=== PATIENT | male | born 1965 | race African-American/Black ===

== ENCOUNTER 2021-04-06 15:07 | Emergency (ER) | payer OTHER ==
[2021-04-06 15:45] LABS: #Eosinphils 0.7 10x3/uL (0.0-0.5); #Monocytes 0.6 10x3/uL (0.0-1.1); #Neutrophils 4.4 10x3/uL (1.5-8.4); %Basophils 0.4 % (0.0-2.0); %Eosinophils 7.2 % (0.0-6.0); %Lymphocytes 39.1 % (18.0-47.0); %Monocytes 6.3 % (0.0-10.0); %Neutrophils 46.9 % (40.0-75.0); Hemoglobin 14.4 g/dL (13.5-17.5); Mean Corpuscular HGB CONC 32.7 g/dL (32.0-36.0); Mean Corpuscular Hemoglobin 25.6 pg (27.0-33.0); Mean Corpuscular Volume 78.2 fl (81.2-95.1); Mean Platelet Volume 11.5 fl (7.4-10.4); Platelet Count 163 10x3/uL (150-450); RBC Distribution Width 13.2 % (11.5-14.5); Red Blood Cell (RBC) Count 5.63 10x6/uL (4.32-5.72); White Blood Cell (WBC) Count 9.5 10x3/uL (3.5-10.5)
[2021-04-06 15:59] LABS: Acetaminophen Less than 6.0 mcg/mL (10.0-30.0); Alcohol 145 mg/dL (Less than 10); CK (CPK) 237 U/L (30-200); Magnesium 2.2 mg/dL (1.6-2.6); Salicylate Less than 8.0 mg/dL (15.0-30.0)
[2021-04-06 16:00] LABS: ALT (SGPT) 11 U/L (8-55); AST (SGOT) 16 U/L (5-34); Albumin 4.2 g/dL (3.5-5.0); Alkaline Phosphatase 59 U/L (40-110); Anion Gap 14 mmol/L (10-20); BUN (Urea Nitrogen) 8 mg/dL (8.4-25.7); Bilirubin, Total 0.5 mg/dL (0.2-1.2); Calc. Creatinine Clearance 0 mL/min (70-130); Carbon Dioxide 22 mmol/L (22-29); Chloride 108 mmol/L (98-107); Globulin 3.1 g/dL (2.4-3.5); Glucose 72 mg/dL (70-105); Potassium 3.7 mmol/L (3.5-5.1); Protein, Total 7.3 g/dL (6.0-8.3); Sodium 140 mmol/L (136-145)
[2021-04-06 16:01] LABS: Bilirubin Neg (Negative); Blood, Urine Negative (Negative); Clarity Clear (Clear); Glucose, Urine (Dipstick) Normal (Negative); Ketone, Urine Negative (Negative); Leukocyte Negative (Negative); Nitrite Negative (Negative); Protein, Urine (Dipstick) Negative (Neg-Trace); Urobilinogen Normal mg/dL (Less than 2)
[2021-04-06 16:06] LABS: Amphetamine Not Detected (NotDetected); Barbiturates Screen Not Detected (NotDetected); Benzodiazepine Screen Not Detected (NotDetected); Cocaine Metabolite Screen Not Detected (NotDetected); Methadone Not Detected (NotDetected); Methamphetamine Not Detected (NotDetected); Opiate Screen Not Detected (NotDetected); Oxycodone Screen Not Detected (NotDetected); Phencyclidine (PCP) Not Detected (NotDetected); THC/Cannabinoid Screen Not Detected (NotDetected); Tricyclic Screen Not Detected (NotDetected)
== END 2021-04-06 17:15 | disposition home or self-care (01) ==
LOC: CSHERS 15:07
DX: F10.129 Alcohol abuse with intoxication, unspecified (principal); Y90.2 Blood alcohol level of 40-59 mg/100 ml; Z86.73 Personal history of transient ischemic attack (TIA), and cerebral infarction without residual deficits; I10 Essential (primary) hypertension; E78.5 Hyperlipidemia, unspecified; Z79.82 Long term (current) use of aspirin; Z79.899 Other long term (current) drug therapy
CPT/HCPCS: 36415; 70450; 71045; 80053; 80306; 80307; 81003; 82550; 83735; 84443; 85025; 93005

== ENCOUNTER 2021-08-25 20:32 | Emergency (ER) | payer OTHER ==
[2021-08-25] MEDS ORDERED: Lidocaine 1% w/Epinephrine 1:100K 20 ML VIAL ONE (21:02)
[2021-08-25 22:30] LABS: #Basophils 0.1 10x3/uL (0.0-0.2); #Eosinphils 0.7 10x3/uL (0.0-0.5); #Monocytes 0.6 10x3/uL (0.0-1.1); %Basophils 0.7 % (0.0-2.0); %Eosinophils 6.6 % (0.0-6.0); %Lymphocytes 26.3 % (18.0-47.0); %Monocytes 6.1 % (0.0-10.0); %Neutrophils 60.1 % (40.0-75.0); Hemoglobin 15.2 g/dL (13.5-17.5); Mean Corpuscular HGB CONC 33.3 g/dL (32.0-36.0); Mean Corpuscular Hemoglobin 25.5 pg (27.0-33.0); Mean Corpuscular Volume 76.6 fl (81.2-95.1); Mean Platelet Volume 11.5 fl (7.4-10.4); Platelet Count 177 10x3/uL (150-450); RBC Distribution Width 12.9 % (11.5-14.5); Red Blood Cell (RBC) Count 5.95 10x6/uL (4.32-5.72); White Blood Cell (WBC) Count 9.9 10x3/uL (3.5-10.5)
[2021-08-25 22:41] LABS: ALT (SGPT) 17 U/L (8-55); AST (SGOT) 19 U/L (5-34); Albumin 4.5 g/dL (3.5-5.0); Alcohol 116 mg/dL (Less than 10); Alkaline Phosphatase 64 U/L (40-110); Anion Gap 15 mmol/L (10-20); BUN (Urea Nitrogen) 9 mg/dL (8.4-25.7); Bilirubin, Total 0.5 mg/dL (0.2-1.2); Calc. Creatinine Clearance 0 mL/min (70-130); Calcium 9.4 mg/dL (7.8-10.44); Carbon Dioxide 24 mmol/L (22-29); Chloride 105 mmol/L (98-107); Globulin 3.1 g/dL (2.4-3.5); Glucose 84 mg/dL (70-105); Potassium 4.2 mmol/L (3.5-5.1); Protein, Total 7.6 g/dL (6.0-8.3); Sodium 140 mmol/L (136-145)
[2021-08-25] MEDS ORDERED: Bacitracin 1 PK ONE (23:24)
== END 2021-08-25 23:29 | disposition home or self-care (01) ==
LOC: CSHERS 20:32
DX: S01.01XA Laceration without foreign body of scalp, initial encounter (principal); F10.10 Alcohol abuse, uncomplicated; I10 Essential (primary) hypertension; F17.210 Nicotine dependence, cigarettes, uncomplicated; W19.XXXA Unspecified fall, initial encounter
CPT/HCPCS: 70450; 72125; 80053; 80307; 84484; 85025; 93005

== ENCOUNTER 2021-09-29 19:06 | Emergency (ER) | payer OTHER | END 2021-09-29 19:20 | disposition left against medical advice (07) | LOC: CSHERS 19:06 | DX: Z53.21 Procedure and treatment not carried out due to patient leaving prior to being seen by health care provider (principal) ==

== ENCOUNTER 2021-11-08 19:20 | Emergency (ER) | payer OTHER ==
[2021-11-08] MEDS ORDERED: Erythromycin Base 0.5% Oint 1 GM TUBE ONE (20:12)
== END 2021-11-08 20:15 | disposition home or self-care (01) ==
LOC: CSHERS 19:20
DX: H10.9 Unspecified conjunctivitis (principal); I10 Essential (primary) hypertension
CPT/HCPCS: 99283

== ENCOUNTER 2022-03-08 11:28 | Observation (INO) | payer OTHER ==
[~2022-03-08 11:28] MED LIST: Iopamidol 370 76% 100 ML VIAL ONE
[2022-03-08 13:01] LABS: #Basophils 0.1 10x3/uL (0.0-0.2); #Eosinphils 0.6 10x3/uL (0.0-0.5); #Monocytes 0.9 10x3/uL (0.0-1.1); #Neutrophils 7.5 10x3/uL (1.5-8.4); %Basophils 0.5 % (0.0-2.0); %Eosinophils 4.5 % (0.0-6.0); %Monocytes 7.1 % (0.0-10.0); %Neutrophils 60.6 % (40.0-75.0); Hemoglobin 14.8 g/dL (13.5-17.5); Mean Corpuscular HGB CONC 32.7 g/dL (32.0-36.0); Mean Corpuscular Hemoglobin 25.1 pg (27.0-33.0); Mean Corpuscular Volume 76.8 fl (81.2-95.1); Mean Platelet Volume 12.2 fl (7.4-10.4); Platelet Count 237 10x3/uL (150-450); RBC Distribution Width 12.8 % (11.5-14.5); White Blood Cell (WBC) Count 12.3 10x3/uL (3.5-10.5)
[2022-03-08 13:08] LABS: INR-International Normal Ratio 0.9; PTT 25.3 sec (22.0-33.0); Prothrombin Time 10.2 sec (9.5-12.1)
[2022-03-08 13:11] LABS: ALT (SGPT) 30 U/L (8-55); AST (SGOT) 27 U/L (5-34); Albumin 4.6 g/dL (3.5-5.0); Alkaline Phosphatase 80 U/L (40-110); Anion Gap 15 mmol/L (10-20); BUN (Urea Nitrogen) 17 mg/dL (8.4-25.7); Bilirubin, Total 0.7 mg/dL (0.2-1.2); Calc. Creatinine Clearance 0 mL/min (70-130); Calcium 10.1 mg/dL (7.8-10.44); Carbon Dioxide 27 mmol/L (22-29); Chloride 100 mmol/L (98-107); Estimated GFR 76; Globulin 3.3 g/dL (2.4-3.5); Glucose 141 mg/dL (70-105); Potassium 3.8 mmol/L (3.5-5.1); Protein, Total 7.9 g/dL (6.0-8.3); Sodium 138 mmol/L (136-145)
[2022-03-08 13:55] LABS: Bilirubin Neg (Negative); Blood, Urine Negative (Negative); Clarity Clear (Clear); Glucose, Urine (Dipstick) Normal (Negative); Ketone, Urine Negative (Negative); Leukocyte 100 (Negative); Nitrite Negative (Negative); Protein, Urine (Dipstick) Negative (Neg-Trace); Urobilinogen Normal mg/dL (Less than 2)
[2022-03-08 14:14] LABS: RBC/HPF None Seen HPF (0-3); WBC/HPF 0-3 HPF (0-3)
[2022-03-08 14:15] LABS: Bacteria/HPF None Seen HPF (None Seen); Squamous Epithelial 0-3 HPF (0-3)
[2022-03-08 17:40] LABS: Troponin I Less than 0.010 ng/mL (< 0.028)
[2022-03-08] MEDS ORDERED: Ondansetron ODT 4 MG TAB PO PRN (18:25)
[2022-03-08] MEDS ORDERED: Senokot S 8.6-50 MG TAB PO PRN (18:25)
[2022-03-08] MEDS ORDERED: Acetaminophen 325 MG TAB PO PRN (18:25)
[2022-03-08] MEDS ORDERED: Ondansetron PF 4 MG/2 ML Vial IVP PRN (18:25)
[2022-03-08] MEDS ORDERED: Nicotine 14 MG PATCH TD PRN (18:27)
[2022-03-08] MEDS ORDERED: Benzonatate 100 MG CAP PO PRN (18:28)
[2022-03-08 19:35] VITALS: BMI 19.3
[2022-03-08 20:16] LABS: Troponin I Less than 0.010 ng/mL (< 0.028)
[2022-03-08] MEDS ORDERED: FLU VACC QS2022-23(6MOS UP)/PF 60 MCG/0.5 ML SYRINGE IM ONE (22:30)
[2022-03-09 02:03] LABS: SARS-CoV-2 NAA Rapid Test Not Detected (NotDetected)
[2022-03-09 04:55] LABS: #Basophils 0.1 10x3/uL (0.0-0.2); #Eosinphils 0.4 10x3/uL (0.0-0.5); #Monocytes 0.7 10x3/uL (0.0-1.1); #Neutrophils 6.4 10x3/uL (1.5-8.4); %Basophils 0.5 % (0.0-2.0); %Monocytes 6.2 % (0.0-10.0); %Neutrophils 59.9 % (40.0-75.0); Hemoglobin 13.5 g/dL (13.5-17.5); Mean Corpuscular HGB CONC 32.8 g/dL (32.0-36.0); Mean Corpuscular Hemoglobin 25.4 pg (27.0-33.0); Mean Corpuscular Volume 77.4 fl (81.2-95.1); Mean Platelet Volume 12.3 fl (7.4-10.4); Platelet Count 159 10x3/uL (150-450); RBC Distribution Width 12.9 % (11.5-14.5); Red Blood Cell (RBC) Count 5.32 10x6/uL (4.32-5.72); White Blood Cell (WBC) Count 10.7 10x3/uL (3.5-10.5)
[2022-03-09 05:10] LABS: Anion Gap 14 mmol/L (10-20); BUN (Urea Nitrogen) 16 mg/dL (8.4-25.7); Calc. Creatinine Clearance 60 mL/min (70-130); Calcium 9.2 mg/dL (7.8-10.44); Carbon Dioxide 28 mmol/L (22-29); Chloride 101 mmol/L (98-107); Estimated GFR 82; Glucose 87 mg/dL (70-105); Potassium 3.7 mmol/L (3.5-5.1); Sodium 139 mmol/L (136-145)
[2022-03-09 12:39] VITALS: TEMP 98.1
[2022-03-09 15:18] VITALS: BP 158/101
[2022-03-10] MEDS ORDERED: Clopidogrel Bisulfate 75 MG TAB PO SCH (09:00)
== END 2022-03-09 17:05 | disposition short-term general hospital (02) ==
LOC: CSHERS 11:28 → CSHTELE 17:32 → INTOOBSV 17:32
PROVIDERS: ADMIT Internal Medicine; ATTEND Internal Medicine
DX: I63.9 Cerebral infarction, unspecified (principal); I65.23 Occlusion and stenosis of bilateral carotid arteries; G93.89 Other specified disorders of brain; G81.90 Hemiplegia, unspecified affecting unspecified side; D72.829 Elevated white blood cell count, unspecified; I10 Essential (primary) hypertension; E78.5 Hyperlipidemia, unspecified; F17.210 Nicotine dependence, cigarettes, uncomplicated; Z79.82 Long term (current) use of aspirin; Z79.899 Other long term (current) drug therapy; Z20.822 Contact with and (suspected) exposure to COVID-19
CPT/HCPCS: 36415; 70450; 70496; 70498; 70551; 71045; 80048; 80053; 81003; 81015; 84484; 85025; 85610; 85730; 87804; 93005; 94760; G0378; Q9967

== ENCOUNTER 2022-07-04 15:57 | Emergency (ER) | payer OTHER ==
[2022-07-04 17:24] LABS: Bilirubin Neg (Negative); Blood, Urine Negative (Negative); Clarity Clear (Clear); Glucose, Urine (Dipstick) Normal (Negative); Ketone, Urine Negative (Negative); Leukocyte 100 (Negative); Nitrite Negative (Negative); Protein, Urine (Dipstick) Negative (Neg-Trace); Urobilinogen Normal mg/dL (Less than 2); pH, Urine 6.5 (5.0-9.0)
[2022-07-04 17:41] LABS: Bacteria/HPF Rare-Few HPF (None Seen); RBC/HPF 0-3 HPF (0-3); Squamous Epithelial 0-3 HPF (0-3)
== END 2022-07-04 19:41 | disposition home or self-care (01) ==
LOC: CSHERS 15:57
DX: M25.571 Pain in right ankle and joints of right foot (principal); I10 Essential (primary) hypertension; F17.210 Nicotine dependence, cigarettes, uncomplicated
CPT/HCPCS: 81003; 81015; 99283

== ENCOUNTER 2023-05-15 05:22 | Inpatient (IN) | payer OTHER ==
[2023-05-15] MEDS ORDERED: hydrALAZINE 20 MG/ML VIAL ONE ×2 (06:14→08:13)
[2023-05-15 06:31] LABS: Hematocrit 46.9 % (38.8-50.0); Hemoglobin 14.9 g/dL (13.5-17.5); Mean Corpuscular HGB CONC 31.8 g/dL (32.0-36.0); Mean Corpuscular Hemoglobin 24.3 pg (27.0-33.0); Mean Corpuscular Volume 76.6 fl (81.2-95.1); Mean Platelet Volume 11.1 fl (7.4-10.4); Platelet Count 147 10x3/uL (150-450); RBC Distribution Width 13.6 % (11.5-14.5); Red Blood Cell (RBC) Count 6.12 10x6/uL (4.32-5.72); White Blood Cell (WBC) Count 9.2 10x3/uL (3.5-10.5)
[2023-05-15 06:32] LABS: MDiff Complete? YES
[2023-05-15] MEDS ORDERED: Ondansetron PF 4 MG/2 ML Vial ONE (06:39)
[2023-05-15 06:40] LABS: Anion Gap 17 mmol/L (10-20); BUN (Urea Nitrogen) 13 mg/dL (8.4-25.7); Calc. Creatinine Clearance 0 mL/min (70-130); Calcium 9.6 mg/dL (7.8-10.44); Carbon Dioxide 23 mmol/L (22-29); Chloride 107 mmol/L (98-107); Estimated GFR 61; Glucose 96 mg/dL (70-105); Potassium 3.7 mmol/L (3.5-5.1); Sodium 143 mmol/L (136-145)
[2023-05-15 06:41] LABS: ALT (SGPT) 13 U/L (8-55); AST (SGOT) 15 U/L (5-34); Albumin 4.6 g/dL (3.5-5.0); Alkaline Phosphatase 79 U/L (40-110); Globulin 3.8 g/dL (2.4-3.5); Protein, Total 8.4 g/dL (6.0-8.3)
[2023-05-15 07:16] LABS: Eosinophils 2 % (0-10); Lymphocytes 20 % (21-51); Monocytes 3 % (0-10); Neutrophil 75 % (42-75)
[2023-05-15 07:25] LABS: Hypochromia SLIGHT = 6-15 cells (100X) (0-5/hpf); Platelet Adequacy Comment Appears Adequate; Target Cells SLIGHT = 2-5 cells (100X) (0-1/hpf)
[2023-05-15 07:30] LABS: Prothrombin Time 11.1 sec (9.5-12.1)
[2023-05-15 07:31] LABS: PTT 26.3 sec (22.0-33.0)
[2023-05-15] MEDS ORDERED: Ondansetron PF 4 MG/2 ML Vial IVP PRN (07:49)
[2023-05-15] MEDS ORDERED: Acetaminophen 650 MG Suppository PR PRN (07:49)
[2023-05-15] MEDS ORDERED: Senokot S 8.6-50 MG TAB PO PRN (07:49)
[2023-05-15] MEDS ORDERED: Calcium Carbonate 500 MG ChewTAB PO PRN (07:49)
[2023-05-15] MEDS ORDERED: Acetaminophen 325 MG TAB PO PRN (07:49)
[2023-05-15] MEDS ORDERED: Acetaminophen 500 MG TAB ONE (08:14)
[2023-05-15] MEDS ORDERED: Aspirin Chewable 81 MG TAB ONE (08:14)
[2023-05-15] MEDS ORDERED: Aspirin 300 MG Suppository ONE (09:10)
[2023-05-15] MEDS ORDERED: Iopamidol 370 76% 100 ML VIAL ONE (09:40)
[2023-05-15] MEDS ORDERED: Clopidogrel Bisulfate 75 MG TAB PO SCH (11:00)
[2023-05-15] MEDS ORDERED: Aspirin 81 mg Enteric Coated Tablet PO SCH (11:00)
[2023-05-15 15:11] VITALS: BMI 20.8
[2023-05-15] MEDS: Nicotine 14 MG PATCH TD SCH (15:53)
[2023-05-15] MEDS: Sodium Chloride 0.9% 1,000 ML IV SCH (15:53)
[2023-05-15] MEDS ORDERED: Atorvastatin Calcium 40 MG TAB PO SCH (21:00)
[2023-05-15] MEDS: Atorvastatin Calcium 40 MG TAB PO SCH (21:58)
[2023-05-16] MEDS: Sodium Chloride 0.9% 1,000 ML IV SCH ×2 (00:59→07:24)
[2023-05-16] MEDS: hydrALAZINE 20 MG/ML VIAL SLOW IVP PRN ×2 (01:40→17:32)
[2023-05-16 05:18] LABS: Hematocrit 44.1 % (38.8-50.0); Hemoglobin 14.3 g/dL (13.5-17.5); Mean Corpuscular HGB CONC 32.4 g/dL (32.0-36.0); Mean Corpuscular Hemoglobin 24.8 pg (27.0-33.0); Mean Corpuscular Volume 76.4 fl (81.2-95.1); Mean Platelet Volume 12.5 fl (7.4-10.4); Platelet Count 175 10x3/uL (150-450); RBC Distribution Width 13.2 % (11.5-14.5); Red Blood Cell (RBC) Count 5.77 10x6/uL (4.32-5.72); White Blood Cell (WBC) Count 9.4 10x3/uL (3.5-10.5)
[2023-05-16 05:30] LABS: ALT (SGPT) 14 U/L (8-55); AST (SGOT) 18 U/L (5-34); Alkaline Phosphatase 66 U/L (40-110); Anion Gap 13 mmol/L (10-20); BUN (Urea Nitrogen) 14 mg/dL (8.4-25.7); Bilirubin, Total 0.8 mg/dL (0.2-1.2); Calc. Creatinine Clearance 59 mL/min (70-130); Calcium 8.9 mg/dL (7.8-10.44); Carbon Dioxide 23 mmol/L (22-29); Chloride 109 mmol/L (98-107); Estimated GFR 73; Globulin 3.3 g/dL (2.4-3.5); Glucose 93 mg/dL (70-105); Magnesium 2.1 mg/dL (1.6-2.6); Potassium 3.9 mmol/L (3.5-5.1); Protein, Total 7.3 g/dL (6.0-8.3); Sodium 141 mmol/L (136-145)
[2023-05-16 05:42] LABS: Cardiac Risk 7.3 (Less than 4.5); Cholesterol 225 mg/dl (< 200 Desired); HDL Cholesterol 31 mg/dL (>60 Neg Risk); LDL Cholesterol, Calculated 182 mg/dL; Triglycerides 62 mg/dL (Less than 150)
[2023-05-16 05:59] LABS: MDiff Complete? YES
[2023-05-16 06:34] LABS: Eosinophils 3 % (0-10); Lymphocytes 17 % (21-51); Monocytes 7 % (0-10); Neutrophil 67 % (42-75); Reactive Lymphocytes 6 % (0-10)
[2023-05-16 06:41] LABS: Large Platelets SLIGHT (None Seen); Microcytosis SLIGHT = 6-15 cells (100X) (0-5/hpf)
[2023-05-16] MEDS ORDERED: FLU VACC QS2023-24(6MOS UP)/PF 60 MCG/0.5 ML SYRINGE IM ONE (09:00)
[2023-05-16] MEDS: Aspirin 81 mg Enteric Coated Tablet PO SCH (10:05)
[2023-05-16] MEDS: Clopidogrel Bisulfate 75 MG TAB PO SCH (10:06)
[2023-05-16 13:21] LABS: Hemoglobin A1c 4.7 % (4.0-6.0)
[2023-05-16] MEDS: Nicotine 14 MG PATCH TD SCH (14:06)
[2023-05-16] MEDS: Atorvastatin Calcium 40 MG TAB PO SCH (20:20)
[2023-05-16] MEDS: hydrALAZINE 25 MG TAB PO SCH (20:20)
[2023-05-16] MEDS: Metoprolol Tartrate 50 MG TAB PO SCH (20:20)
[2023-05-17] MEDS ORDERED: hydrALAZINE 25 MG TAB PO SCH (10:00)
[2023-05-17] MEDS ORDERED: hydrALAZINE 20 MG/ML VIAL SLOW IVP PRN (10:11)
[2023-05-17] MEDS: Clopidogrel Bisulfate 75 MG TAB PO SCH (11:13)
[2023-05-17] MEDS: Aspirin 81 mg Enteric Coated Tablet PO SCH (11:13)
[2023-05-17] MEDS: Metoprolol Tartrate 50 MG TAB PO SCH ×2 (11:13→20:49)
[2023-05-17] MEDS: NIFEdipine XL 30 MG ER.TAB PO SCH (11:13)
[2023-05-17] MEDS: Nicotine 14 MG PATCH TD SCH (13:25)
[2023-05-17] MEDS: hydrALAZINE 25 MG TAB PO SCH ×2 (14:31→20:48)
[2023-05-17] MEDS: Atorvastatin Calcium 40 MG TAB PO SCH (20:47)
[2023-05-18 04:51] LABS: Hematocrit 47.4 % (38.8-50.0); Hemoglobin 15.5 g/dL (13.5-17.5); Mean Corpuscular HGB CONC 32.7 g/dL (32.0-36.0); Mean Corpuscular Hemoglobin 24.7 pg (27.0-33.0); Mean Corpuscular Volume 75.5 fl (81.2-95.1); Mean Platelet Volume 12.6 fl (7.4-10.4); Platelet Count 177 10x3/uL (150-450); RBC Distribution Width 12.9 % (11.5-14.5); Red Blood Cell (RBC) Count 6.28 10x6/uL (4.32-5.72); White Blood Cell (WBC) Count 11.6 10x3/uL (3.5-10.5)
[2023-05-18 04:52] LABS: MDiff Complete? YES
[2023-05-18 05:06] LABS: Anion Gap 12 mmol/L (10-20); BUN (Urea Nitrogen) 18 mg/dL (8.4-25.7); Calc. Creatinine Clearance 63 mL/min (70-130); Calcium 8.9 mg/dL (7.8-10.44); Carbon Dioxide 23 mmol/L (22-29); Chloride 105 mmol/L (98-107); Estimated GFR 79; Glucose 87 mg/dL (70-105); Magnesium 2.2 mg/dL (1.6-2.6); Potassium 3.9 mmol/L (3.5-5.1); Sodium 136 mmol/L (136-145)
[2023-05-18 05:58] LABS: Band 1 % (5-11); Eosinophils 2 % (0-10); Lymphocytes 21 % (21-51); Monocytes 6 % (0-10); Neutrophil 59 % (42-75); Reactive Lymphocytes 11 % (0-10)
[2023-05-18 06:01] LABS: RBC Morph Comment Within Normal Limits
[2023-05-18 06:02] LABS: Large Platelets SLIGHT (None Seen)
[2023-05-18] MEDS: hydrALAZINE 25 MG TAB PO SCH ×2 (10:19→22:01)
[2023-05-18] MEDS: Metoprolol Tartrate 50 MG TAB PO SCH ×2 (10:19→22:01)
[2023-05-18] MEDS: NIFEdipine XL 30 MG ER.TAB PO SCH (10:19)
[2023-05-18] MEDS: Clopidogrel Bisulfate 75 MG TAB PO SCH (10:20)
[2023-05-18] MEDS: Aspirin 81 mg Enteric Coated Tablet PO SCH (10:20)
[2023-05-18] MEDS: Nicotine 14 MG PATCH TD SCH (11:43)
[2023-05-18] MEDS: Atorvastatin Calcium 40 MG TAB PO SCH (22:01)
[2023-05-19] MEDS ORDERED: NIFEdipine XL 30 MG ER.TAB PO SCH (09:00)
[2023-05-19] MEDS: hydrALAZINE 25 MG TAB PO SCH (10:12)
[2023-05-19] MEDS: Clopidogrel Bisulfate 75 MG TAB PO SCH (10:12)
[2023-05-19] MEDS: Metoprolol Tartrate 50 MG TAB PO SCH (10:12)
[2023-05-19] MEDS: Aspirin 81 mg Enteric Coated Tablet PO SCH (10:13)
[2023-05-19] MEDS: Nicotine 14 MG PATCH TD SCH (11:37)
[2023-05-19 17:59] VITALS: BP 167/90; TEMP 98.1
== END 2023-05-19 18:30 | disposition home or self-care (01) | DRG 65 ==
LOC: CSHERS 05:22 → SUATTDRO 05:22 → CSHTELE 07:49
PROVIDERS: ADMIT Internal Medicine; ATTEND Internal Medicine
DX: I63.531 Cerebral infarction due to unspecified occlusion or stenosis of right posterior cerebral artery (principal); N17.9 Acute kidney failure, unspecified; I10 Essential (primary) hypertension; G93.89 Other specified disorders of brain; F10.10 Alcohol abuse, uncomplicated; E78.5 Hyperlipidemia, unspecified; R47.1 Dysarthria and anarthria; F17.210 Nicotine dependence, cigarettes, uncomplicated; R41.82 Altered mental status, unspecified; Z79.82 Long term (current) use of aspirin; Z71.6 Tobacco abuse counseling; Z79.899 Other long term (current) drug therapy; Z71.41 Alcohol abuse counseling and surveillance of alcoholic
CPT/HCPCS: 0042T; 36416; 70450; 70551; 80048; 80053; 80061; 83036; 83735; 85025; 85610; 85730; 93005; 93306; 94760; 96374; 96375; J0360; J2405; J7050; Q9967